=== PATIENT | female | born 1990 | race African-American/Black ===

== ENCOUNTER 2017-12-06 22:19 | Emergency (ER) | payer MEDICAID ==
[~2017-12-06] VITALS: Ht 154.9 cm; Wt 99.0 kg
[2017-12-07] MEDS ORDERED: ONDANSETRON HCL 4MG/2ML INJ IV STA (01:20)
[2017-12-07] MEDS ORDERED: SODIUM CHLORIDE 0.9% 1,000 ML IV ONE (01:20)
[2017-12-07] MEDS ORDERED: ACETAMINOPHEN 325MG TABLET PO ONE (01:30)
[2017-12-07 01:44] LABS: PROTHROMBIN TIME 10.1 sec (9.1-11.1)
[2017-12-07 01:53] LABS: CHLORIDE 102 mEq/L (98-107)
[2017-12-07 02:04] LABS: BASOPHILS % 0.3 % (0.0-2.0); EOSINOPHILS % 0.3 % (0.0-5.0); HEMATOCRIT. 31.6 % (36.0-48.0); HEMOGLOBIN. 9.8 g/dL (12.0-16.0); LYMPHOCYTES % 25.2 % (20.0-50.0); MEAN CORPUSCULAR HEMOGLOBIN 21.2 pg (28.0-32.0); MEAN CORPUSCULAR VOLUME 68.1 fL (81.0-99.0); MEAN PLATELET VOLUME 8.1 fl (7.4-10.4); MONOCYTES % 9.1 % (2.0-8.0); NEUTROPHILS % 65.1 % (40.0-76.0); PLATELET 426 x1000/uL (130-400); RED BLOOD CELL COUNT 4.64 mill/uL (4.2-5.4); RED CELL DISTRIBUTION WIDTH 18.9 % (11.6-14.6)
[2017-12-07 02:07] LABS: CLARITY URINE TURBID (CLEAR); COLOR URINE YELLOW (YELLOW); KETONES URINE TRACE (NEGATIVE); LEUKOCYTE ESTERASE URINE 3+ (NEGATIVE); NITRITE URINE NEGATIVE (NEGATIVE); OCCULT BLOOD URINE 1+ (NEGATIVE); PH URINE 6.5 (4.5-8.0); PROTEIN URINE 1+ (NEGATIVE); SPECIFIC GRAVITY URINE 1.018 (1.005-1.030)
[2017-12-07] MEDS ORDERED: CEFTRIAXONE 1 G PREMIX 50 ML IV ONE (03:45)
[2017-12-07 04:47] VITALS: BP 122/67
[2017-12-07 05:05] LABS: PLATELET ESTIMATE NORMAL
== END 2017-12-07 04:52 | disposition home or self-care (01) ==
LOC: ER 22:19
DX: O23.10 Infections of bladder in pregnancy, unspecified trimester (principal); Z3A.00 Weeks of gestation of pregnancy not specified; Z88.5 Allergy status to narcotic agent
CPT/HCPCS: 36415; 76857; 80053; 81003; 81025; 83690; 85025; 85610; 87086; 96361; 96365; 96375; 99285; J0696; J2405; J7030; Z7610